=== PATIENT | male | born 1990 | race Caucasian/White ===

== ENCOUNTER 2017-12-23 06:20 | Inpatient (IN) ==
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
[2017-12-23 07:08] LABS: Bilirubin,Urine Negative (Negative); Blood,Urine Negative (Negative); Clarity,Urine Clear (Clear); Color,Urine Yellow (Yellow); Glucose,Urine (UA) Normal (Normal); Ketones,Urine Negative (Negative); Leukocyte Esterase,Urine Negative (Negative); Nitrite,Urine Negative (Negative); PH,Urine 6.5 pH Units (5.0-8.0); Protein,Urine Negative (Neg-Trace); Specific Gravity,Urine 1.018 (1.010-1.025); Urobilinogen,Urine Normal (Normal)
[2017-12-23 07:20] LABS: Basophils # 0.1 K/mcL (0.0-0.2); Basophils % 0.9 %; Eosinophils # 0.3 K/mcL (0.0-0.6); Eosinophils % 3.8 %; Hematocrit 42.9 % (37.5-50.1); Hemoglobin 14.7 g/dL (12.9-16.9); Immature Granulocytes % 0.2 % (0-4); Lymphocytes # 2.1 K/mcL (0.6-4.6); Lymphocytes % 32.2 %; Mean Corpuscular HGB Conc 34.3 g/dL (31.6-35.5); Mean Corpuscular Hemoglobin 30.2 pg (28.0-33.3); Mean Corpuscular Volume 88.3 fL (83.0-100.0); Mean Platelet Volume 11.1 fL (9.4-12.4); Monocytes # 0.6 K/mcL (0.0-1.3); Monocytes % 8.3 %; Neutrophils # 3.6 K/mcL (1.6-8.9); Platelet Count 162 K/mcL (140-400); Red Blood Count 4.86 M/mcL (4.19-5.50); Red Cell Distribution Width 13.3 % (11.5-14.5); Segmented Neutrophils % 54.6 %
[2017-12-23 07:30] LABS: Acetaminophen < 10 mcg/mL (10-20); Alanine Aminotransferase 11 Units/L (7-52); Albumin 4.3 g/dL (3.5-5.7); Albumin/Globulin Ratio 1.8 (1.1-2.2); Alkaline Phosphatase 51 Units/L (34-104); Aspartate Amino Transferase 16 Units/L (13-39); BUN/Creatinine Ratio 15 (6-26); Bilirubin,Direct 0.2 mg/dL (0.0-0.2); Bilirubin,Indirect 0.4 mg/dL (0.0-1.2); Bilirubin,Total 0.6 mg/dL (0.3-1.0); Blood Urea Nitrogen 11 mg/dL (6-20); Calcium 9.4 mg/dL (8.6-10.3); Carbon Dioxide 23 mEq/L (23-29); Chloride 108 mEq/L (98-107); Ethanol < 10 mg/dL (Less than 10); Globulin 2.4 g/dL (2.4-3.5); Glucose 106 mg/dL (70-105); Osmolality,Calculated 284 (280-300); Potassium 3.7 mEq/L (3.5-5.1); Salicylate < 2.5 mg/dL (15.0-30.0); Sodium 137 mEq/L (136-145); Total Protein 6.7 g/dL (6.4-8.9); eGFR For African Americans > 60 (> 60); eGFR For Non-African Americans > 60 (> 60)
[2017-12-23 07:37] LABS: Amphetamine Screen,Urine Negative ng/mL (Cutoff=1000); Barbiturate Screen,Urine Negative ng/mL (Cutoff=200); Benzodiazepines Screen,Urine Negative ng/mL (Cutoff=200); Cannabinoid Screen,Urine Negative ng/mL (Cutoff = 50); Cocaine Screen,Urine Negative ng/mL (Cutoff= 300); Opiate Screen,Urine Negative ng/mL (Cutoff=300); Phencyclidine Screen,Urine Negative ng/mL (Cutoff=25)
[2017-12-23 07:43] LABS: Thyroid Stimulating Hormone 18.976 mcIU/mL (0.340-5.600)
--- NOTE | 2017-12-23 07:55 | Emergency Department Note ---
Disposition Clinical Impression: Suicidal ideation Disposition: Still a Patient Referrals: NONE,PCP [Primary Care Provider] - Finn Alberto [Family Provider] - Forms: ED Satisfaction Letter General Adult HPI - General Chief complaint: ED Psychiatric Symptoms Stated complaint: psych Time Seen by Provider: 12/23/17 06:45 Source: EMS - History of Present Illness Pain Scale: 0 - Related Data Allergies Allergy/AdvReac Type Severity Reaction Status Date / Time ketorolac [From Toradol] AdvReac Rash Verified 12/23/17 07:11 Penicillins AdvReac Hives Verified 12/23/17 07:11 Past Medical History - Past Medical History Medical history: Reports: no medical history, thyroid disease Psychiatric history: Reports: prior suicide attempt, other - Social History Smoking Status: Current every day smoker Smokeless Tobacco Status: No Alcohol use: Reports: none Drug use: Reports: none Physical Exam - General General appearance: alert, in no apparent distress Course - Reevaluation(s) Reevaluation #1: Attestation note I examined this patient and my medical decision-making was reviewed with the emergency medicine resident. I agree with the documented findings, disposition and treatment plan as described except to the extent set forth below. Patient seen with physician occupational therapy assistant Bel Medina , Please see a copy of his note for details of the H&P, ED evaluation, management and disposition. I have independently evaluated the patient and confirmed appropriate portions of the history and physical exam. Briefly: Patient presents with mental health issues physical examination was benign patient is been medically cleared and awaiting evaluation by mental health services. Patient stable, disposition pending Time: 07:54 Vital Signs Temperature 97.2 F L 12/23/17 06:21 Pulse Rate 59 12/23/17 06:21 Respiratory Rate 20 12/23/17 06:21 Blood Pressure 114/69 12/23/17 06:21 O2 Sat by Pulse Oximetry 96 12/23/17 06:21 Temperature 97.2 F L 12/23/17 06:21 Pulse Rate 59 12/23/17 06:21 Respiratory Rate 20 12/23/17 06:21 Blood Pressure 114/69 12/23/17 06:21 O2 Sat by Pulse Oximetry 96 12/23/17 06:21 Oxygen Delivery Oxygen Delivery Room Air Medical Decision Making - Lab Data Result diagrams: 12/23/17 06:50 12/23/17 06:50 Lab Results 12/23/17 12/23/17 12/23/17 Range/Units 06:50 06:50 06:50 WBC 6.6 (4.3-11.1) K/mcL RBC 4.86 (4.19-5.50) M/mcL Hgb 14.7 (12.9-16.9) g/dL Hct 42.9 (37.5-50.1) % MCV 88.3 (83.0-100.0) fL MCH 30.2 (28.0-33.3) pg MCHC 34.3 (31.6-35.5) g/dL RDW 13.3 (11.5-14.5) % Plt Count 162 (140-400) K/mcL MPV 11.1 (9.4-12.4) fL Immature Gran % 0.2 (0-4) % Seg Neutrophils % 54.6 % Lymphocytes % 32.2 % Monocytes % 8.3 % Eosinophils % 3.8 % Basophils % 0.9 % Neutrophils # 3.6 (1.6-8.9) K/mcL Lymphocytes # 2.1 (0.6-4.6) K/mcL Monocytes # 0.6 (0.0-1.3) K/mcL Eosinophils # 0.3 (0.0-0.6) K/mcL Basophils # 0.1 (0.0-0.2) K/mcL Sodium (136-145) mEq/L Potassium (3.5-5.1) mEq/L Chloride (98-107) mEq/L Carbon Dioxide (23-29) mEq/L BUN (6-20) mg/dL Creatinine (0.70-1.30) mg/dL Est GFR ( Amer) (> 60) Est GFR (Non-Af Amer) (> 60) BUN/Creatinine Ratio (6-26) Glucose (70-105) mg/dL Calculated Osmolality (280-300) Calcium (8.6-10.3) mg/dL Total Bilirubin (0.3-1.0) mg/dL Direct Bilirubin (0.0-0.2) mg/dL Indirect Bilirubin (0.0-1.2) mg/dL AST (13-39) Units/L ALT (7-52) Units/L Alkaline Phosphatase (34-104) Units/L Serum Total Protein (6.4-8.9) g/dL Albumin (3.5-5.7) g/dL Globulin (2.4-3.5) g/dL Albumin/Globulin Ratio (1.1-2.2) TSH (0.340-5.600) mcIU/mL Urine Color Yellow (Yellow) Urine Clarity Clear (Clear) Urine pH 6.5 (5.0-8.0) pH Units Ur Specific [place] 1.018 (1.010-1.025) Urine Protein Negative (Neg-Trace) mg/dL Urine Glucose (UA) Normal (Normal) mg/dL Urine Ketones Negative (Negative) mg/dL Urine Blood Negative (Negative) Urine Nitrite Negative (Negative) Urine Bilirubin Negative (Negative) Urine Urobilinogen Normal (Normal) mg/dL Ur Leukocyte Esterase Negative (Negative) Salicylates (15.0-30.0) mg/dL Urine Opiates Screen Negative (Dkdrct=651) ng/mL Acetaminophen (10-20) mcg/mL Ur Barbiturates Screen Negative (Zanmvm=945) ng/mL Ur Phencyclidine Scrn Negative (Cutoff=25) ng/mL Ur Amphetamines Screen Negative (Hwxhid=9306) ng/mL U Benzodiazepines Scrn Negative (Nrvxzl=126) ng/mL Urine Cocaine Screen Negative (Cutoff= 300) ng/mL U Marijuana (THC) Screen Negative (Cutoff = 50) ng/mL Ethyl Alcohol (Less than 10) mg/dL 12/23/17 Range/Units 06:50 WBC (4.3-11.1) K/mcL RBC (4.19-5.50) M/mcL Hgb (12.9-16.9) g/dL Hct (37.5-50.1) % MCV (83.0-100.0) fL MCH (28.0-33.3) pg MCHC (31.6-35.5) g/dL RDW (11.5-14.5) % Plt Count (140-400) K/mcL MPV (9.4-12.4) fL Immature Gran % (0-4) % Seg Neutrophils % % Lymphocytes % % Monocytes % % Eosinophils % % Basophils % % Neutrophils # (1.6-8.9) K/mcL Lymphocytes # (0.6-4.6) K/mcL Monocytes # (0.0-1.3) K/mcL Eosinophils # (0.0-0.6) K/mcL Basophils # (0.0-0.2) K/mcL Sodium 137 (136-145) mEq/L Potassium 3.7 (3.5-5.1) mEq/L Chloride 108 H (98-107) mEq/L Carbon Dioxide 23 (23-29) mEq/L BUN 11 (6-20) mg/dL Creatinine 0.73 (0.70-1.30) mg/dL Est GFR ( Amer) > 60 (> 60) Est GFR (Non-Af Amer) > 60 (> 60) BUN/Creatinine Ratio 15 (6-26) Glucose 106 H (70-105) mg/dL Calculated Osmolality 284 (280-300) Calcium 9.4 (8.6-10.3) mg/dL Total Bilirubin 0.6 (0.3-1.0) mg/dL Direct Bilirubin 0.2 (0.0-0.2) mg/dL Indirect Bilirubin 0.4 (0.0-1.2) mg/dL AST 16 (13-39) Units/L ALT 11 (7-52) Units/L Alkaline Phosphatase 51 (34-104) Units/L Serum Total Protein 6.7 (6.4-8.9) g/dL Albumin 4.3 (3.5-5.7) g/dL Globulin 2.4 (2.4-3.5) g/dL Albumin/Globulin Ratio 1.8 (1.1-2.2) TSH 18.976 H (0.340-5.600) mcIU/mL Urine Color (Yellow) Urine Clarity (Clear) Urine pH (5.0-8.0) pH Units Ur Specific [place] (1.010-1.025) Urine Protein (Neg-Trace) mg/dL Urine Glucose (UA) (Normal) mg/dL Urine Ketones (Negative) mg/dL Urine Blood (Negative) Urine Nitrite (Negative) Urine Bilirubin (Negative) Urine Urobilinogen (Normal) mg/dL Ur Leukocyte Esterase (Negative) Salicylates < 2.5 L (15.0-30.0) mg/dL Urine Opiates Screen (Bbhxdk=193) ng/mL Acetaminophen < 10 L (10-20) mcg/mL Ur Barbiturates Screen (Qtlmdr=309) ng/mL Ur Phencyclidine Scrn (Cutoff=25) ng/mL Ur Amphetamines Screen (Ijxdvm=7651) ng/mL U Benzodiazepines Scrn (Jhdwsj=472) ng/mL Urine Cocaine Screen (Cutoff= 300) ng/mL U Marijuana (THC) Screen (Cutoff = 50) ng/mL Ethyl Alcohol < 10 (Less than 10) mg/dL
[2017-12-23] MEDS ORDERED: Ziprasidone injection 20 MG/ML VIAL IM ONE (11:22)
[2017-12-23] MEDS ORDERED: *HR* LORazepam 2 MG/ML VIAL IM PRN (12:27)
[2017-12-23] MEDS ORDERED: Haloperidol Lactate 5 MG/ML VIAL IM PRN (12:27)
[2017-12-23] MEDS ORDERED: hydrOXYzine pamoate 25 MG CAPSULE PO PRN (12:27)
[2017-12-23] MEDS ORDERED: MOM Conc 10 ML UD.LIQ PO PRN (12:27)
[2017-12-23] MEDS ORDERED: Mag Hydrox/Al Hydrox/Simeth 30 ML UDC PO PRN (12:27)
[2017-12-23] MEDS ORDERED: Ibuprofen 400 MG TABLET PO PRN (12:27)
[2017-12-23] MEDS ORDERED: *HR* LORazepam 1 MG TABLET PO PRN (12:27)
[2017-12-23] MEDS ORDERED: Nicotine 2 MG GUM BC PRN (12:39)
[2017-12-23] MEDS ORDERED: Levothyroxine 25 MCG TABLET PO STA (12:43)
[2017-12-23] MEDS ORDERED: *HR* LORazepam 1 MG TABLET PO SCH (15:00)
[2017-12-23] MEDS: traZODone 50 MG TABLET PO PRN (21:39)
[2017-12-23] MEDS: risperiDONE 1 MG TABLET PO SCH (23:58)
[2017-12-24] MEDS: Nicotine 2 MG GUM BC PRN (09:05)
--- NOTE | 2017-12-24 11:23 | Psychiatry History & Physical ---
Date of Encounter: 12/24/17 Time of Encounter: 11:00 History of Present Illness Patient Stated Chief Complaint: i am suicidal and homicidal. Medicare Admission Attestation: For traditional Medicare patients the provided hospital inpatient services are reasonable and necessary and in the case of services not specified as inpatient -only under 42 CFR 419.22 (n), that they are appropriately provided as inpatient services in accordance 42 CFR 412.3. For Critical Access Hospital the patient may reasonably be expected to be discharged or transferred to a hospital within 96 hours after admission to the Critical Access Hospital. Admitted From: Emergency Dept Plans for Post Hospital Care: Home History of Present Illness: Mr. Mensah is a 27 year old male evaluated today with h/o bipolar, borderline intellectual functioning and behavioral problems, lives with his family. He was admitted as came to ER walked himself as he was wanting to hurt himself buy choking himself and wanted to hurt people no one in particular, he states he saw blood on the wall of people he will kill, he does not have any weapons at home, he was d/c from residential in 08/19 since then has been inpatient 2-3 times , he has not been compliant with his medicine because they do not helped me, he takes effexor and thyroid medicine as they helps. he is hearing voices and telling to hurt people, he has h/o violence and agitation , states people still follow me and i do not like it , he remains irritable , psychotic and davies with suicidal and homicidal thoughts.sleep and appetite fair but has lost weight , he is 172 lbs now and i was 213lbs before. Past psych He has long h/o mental illness treatment since age 16, he has multiple inpatient admission , this year he has 4 admissions as per him , he was at [facility] in 2014 and 2008 , he has been in residential for 2 years and was given medicine in residential also. he has h/o cutting self and suicidal attempts in past. 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 medical he has hypothyroidism and asthma , no sz, no hiv no std. Family grandfather was dx bipolar and committed suicide . Past Med Surg Social Fam HX - Past Medical History Medical history: no medical history, asthma, thyroid disease - Past Psychiatric History Psychiatric history: Reports: bipolar, depression, prior suicide attempt, schizophrenia, previous psychiatric hospitalization Family psychiatric history: Yes Family History of Suicide: Completed (grand father completed suicide) - Social History Smoking Status: Current every day smoker Smokeless Tobacco Status: No Alcohol use: none Drug use: none Occupational status: unemployed Current living situation: Home, With Family Activity Level: Independent ambulation Recent Out of Country Travel Within the Last 8 Weeks: No Exposure or Possible Exposure to Illness During Travel: No Medications & Allergies Albuterol Sulfate [Albuterol Inhaler] 2 puff IH Q4-6H PRN 12/23/17 [History] Levothyroxine [Synthroid] [place] [address]/23/17 [History] Mirtazapine [Remeron] 30 mg PO HS 12/23/17 [History] Venlafaxine HCl [Venlafaxine HCl ER] 75 mg PO DAILY 12/23/17 [History] Ziprasidone HCl [Ziprasidone HCl] 20 mg PO BIDWM 12/23/17 [History] 3 Allergy/AdvReac Type Severity Reaction Status Date / Time ketorolac [From Toradol] AdvReac Rash Verified 12/23/17 07:11 Penicillins AdvReac Hives Verified 12/23/17 07:11 Review of Systems Constitutional: Denies: fever, chills, weakness, weight change Eyes: Denies: eye pain, vision change Ears, Nose, Throat: Denies: ear pain, throat pain, dental pain, hearing loss, congestion Cardiovascular: Denies: chest pain, palpitations, dyspnea on exertion Respiratory: Denies: cough, dyspnea, wheezes Gastrointestinal: Denies: abdominal pain, nausea, vomiting, diarrhea, constipation Genitourinary male: Denies: urgency, dysuria, frequency, genital lesions Musculoskeletal: Denies: joint swelling, joint pain Integumentary: Denies: rash, lesions, pruritus Neurological: Denies: headache, weakness, numbness, memory loss Psychiatric: Reports: anxiety, abnormal sleep pattern, suicidal ideation, homicidal ideation, auditory hallucinations, visual hallucinations, irritability , mood swings Endocrine: Denies: fatigue, heat or cold intolerance Hematologic/Lymphatic: Denies: easy bruising, lymphadenopathy Allergic/Immunologic: Denies: urticaria, itchy eyes Exam - HEENT Head exam IM: Present: atraumatic Eye exam IM: Present: EOMI, normal appearance, PERRL ENT exam IM: Present: normal exam - Neurological Neurological exam: Present: CN II-XII intact - Respiratory Respiratory exam IM: Present: CTAB - GI/Abdominal GI/Abdominal exam IM: Present: normal bowel sounds, soft. Absent: tenderness - Extremities Extremities exam IM: Present: full ROM - Skin Skin exam IM: Present: dry, warm - Constitutional Vitals: Temp Pulse Resp BP Pulse Ox 97.3 F L 62 16 108/67 96 12/24/17 08:45 12/24/17 08:45 12/24/17 08:45 12/24/17 08:45 12/23/17 10:26 General appearance: disheveled, malodorous, thin - Musculoskeletal Gait: normal Station: other Strength & Tone: normal for patient - Psychiatric Patient Orientation: Yes Person, Yes Time, Yes Place Level of alertness: Alert Behavior: restless, guarded Psychomotor activity: Increased Eye Contact: Minimal Contact Mood Description: Anxious, Irritable Affect description: labile Speech Volume: Loud Speech pattern: excessive Thought Process: Circumstantial Thought Content: Yes Suicidal ideation, Yes Homicidal ideation, Yes Preoccupation, Yes Paranoid delusion Perceptual Disturbances: Yes Auditory hallucinations, Yes Visual hallucinations Attention Span Ability: Unable to Sustain Attention Memory Description: Grossly Intact Patient Reliability: Reliable Historian Intelligence Estimate: Below Average Judgment: Poor Insight: Minimal Results - Labs Labs: Laboratory Last Values WBC 6.6 K/mcL (4.3-11.1) 12/23/17 06:50 RBC 4.86 M/mcL (4.19-5.50) 12/23/17 06:50 Hgb 14.7 g/dL (12.9-16.9) 12/23/17 06:50 Hct 42.9 % (37.5-50.1) 12/23/17 06:50 MCV 88.3 fL (83.0-100.0) 12/23/17 06:50 MCH 30.2 pg (28.0-33.3) 12/23/17 06:50 MCHC 34.3 g/dL (31.6-35.5) 12/23/17 06:50 RDW 13.3 % (11.5-14.5) 12/23/17 06:50 Plt Count 162 K/mcL (140-400) 12/23/17 06:50 MPV 11.1 fL (9.4-12.4) 12/23/17 06:50 Immature Gran % 0.2 % (0-4) 12/23/17 06:50 Seg Neutrophils % 54.6 % 12/23/17 06:50 Lymphocytes % 32.2 % 12/23/17 06:50 Monocytes % 8.3 % 12/23/17 06:50 Eosinophils % 3.8 % 12/23/17 06:50 Basophils % 0.9 % 12/23/17 06:50 Neutrophils # 3.6 K/mcL (1.6-8.9) 12/23/17 06:50 Lymphocytes # 2.1 K/mcL (0.6-4.6) 12/23/17 06:50 Monocytes # 0.6 K/mcL (0.0-1.3) 12/23/17 06:50 Eosinophils # 0.3 K/mcL (0.0-0.6) 12/23/17 06:50 Basophils # 0.1 K/mcL (0.0-0.2) 12/23/17 06:50 Sodium 137 mEq/L (136-145) 12/23/17 06:50 Potassium 3.7 mEq/L (3.5-5.1) 12/23/17 06:50 Chloride 108 mEq/L (98-107) H 12/23/17 06:50 Carbon Dioxide 23 mEq/L (23-29) 12/23/17 06:50 BUN 11 mg/dL (6-20) 12/23/17 06:50 Creatinine 0.73 mg/dL (0.70-1.30) 12/23/17 06:50 Est GFR ( Amer) > 60 (> 60) 12/23/17 06:50 Est GFR (Non-Af Amer) > 60 (> 60) 12/23/17 06:50 BUN/Creatinine Ratio 15 (6-26) 12/23/17 06:50 Glucose 106 mg/dL (70-105) H 12/23/17 06:50 Calculated Osmolality 284 (280-300) 12/23/17 06:50 Calcium 9.4 mg/dL (8.6-10.3) 12/23/17 06:50 Total Bilirubin 0.6 mg/dL (0.3-1.0) 12/23/17 06:50 Direct Bilirubin 0.2 mg/dL (0.0-0.2) 12/23/17 06:50 Indirect Bilirubin 0.4 mg/dL (0.0-1.2) 12/23/17 06:50 AST 16 Units/L (13-39) 12/23/17 06:50 ALT 11 Units/L (7-52) 12/23/17 06:50 Alkaline Phosphatase 51 Units/L (34-104) 12/23/17 06:50 Serum Total Protein 6.7 g/dL (6.4-8.9) 12/23/17 06:50 Albumin 4.3 g/dL (3.5-5.7) 12/23/17 06:50 Globulin 2.4 g/dL (2.4-3.5) 12/23/17 06:50 Albumin/Globulin Ratio 1.8 (1.1-2.2) 12/23/17 06:50 TSH 18.976 mcIU/mL (0.340-5.600) H 12/23/17 06:50 Free T4 0.79 ng/dl (0.70-2.00) 12/23/17 06:50 Urine Color Yellow (Yellow) 12/23/17 06:50 Urine Clarity Clear (Clear) 12/23/17 06:50 Urine pH 6.5 pH Units (5.0-8.0) 12/23/17 06:50 Ur Specific Dagmar 1.018 (1.010-1.025) 12/23/17 06:50 Urine Protein Negative mg/dL (Neg-Trace) 12/23/17 06:50 Urine Glucose (UA) Normal mg/dL (Normal) 12/23/17 06:50 Urine Ketones Negative mg/dL (Negative) 12/23/17 06:50 Urine Blood Negative (Negative) 12/23/17 06:50 Urine Nitrite Negative (Negative) 12/23/17 06:50 Urine Bilirubin Negative (Negative) 12/23/17 06:50 Urine Urobilinogen Normal mg/dL (Normal) 12/23/17 06:50 Ur Leukocyte Esterase Negative (Negative) 12/23/17 06:50 Salicylates < 2.5 mg/dL (15.0-30.0) L 12/23/17 06:50 Urine Opiates Screen Negative ng/mL (Whvpcg=362) 12/23/17 06:50 Acetaminophen < 10 mcg/mL (10-20) L 12/23/17 06:50 Ur Barbiturates Screen Negative ng/mL (Onyezc=647) 12/23/17 06:50 Ur Phencyclidine Scrn Negative ng/mL (Cutoff=25) 12/23/17 06:50 Ur Amphetamines Screen Negative ng/mL (Rdwtlr=3584) 12/23/17 06:50 U Benzodiazepines Scrn Negative ng/mL (Nzkjmy=518) 12/23/17 06:50 Urine Cocaine Screen Negative ng/mL (Cutoff= 300) 12/23/17 06:50 U Marijuana (THC) Screen Negative ng/mL (Cutoff = 50) 12/23/17 06:50 Ethyl Alcohol < 10 mg/dL (Less than 10) 12/23/17 06:50 Assessment and Plan (1) Homicidal ideation Current visit: Yes Status: Acute Plan: Admit inpatient for safety and stabilization, Close observation, Suicide Precautions per unit protocol, Encourage participation in unit milieu, Group Therapy, Monitor sleep, Monitor appetite, Family/Supportive other meeting, Other Additional Plan: inpatient admission for safety and close monitoring and starting medications. Risks, benefits, side effects, alternatives discussed w/pt: Yes Patient agreeable to treatment: Yes Plans for Post Hospital Care: at Home Estimated Length of Stay (Days): 5 (2) Suicidal ideation Current visit: Yes Status: Acute Plan: Admit inpatient for safety and stabilization, Close observation, Suicide Precautions per unit protocol, Encourage participation in unit milieu, Group Therapy, Monitor sleep, Monitor appetite, Secure weapons, Family/Supportive other meeting Additional Plan: close monitoring , no sheets in room as plan to chock self . Risks, benefits, side effects, alternatives discussed w/pt: Yes Patient agreeable to treatment: Yes Plans for Post Hospital Care: at Home (3) Bipolar affective disorder, depressed, severe, with psychotic behavior Current visit: Yes Status: Acute Plan: Admit inpatient for safety and stabilization, Close observation, Suicide Precautions per unit protocol, Encourage participation in unit milieu, Group Therapy, Monitor sleep, Monitor appetite, Family/Supportive other meeting Additional Plan: patient will be started on medications and continus stabilization for safety Risks, benefits, side effects, alternatives discussed w/pt: Yes Patient agreeable to treatment: Yes Plans for Post Hospital Care: at Home Estimated Length of Stay (Days): 5
[2017-12-24] MEDS: Venlafaxine XR (24 HR) 75 MG CAP.ER.24H PO SCH (13:05)
[2017-12-24] MEDS: Lurasidone 20 MG TABLET PO SCH (13:05)
[2017-12-24] MEDS: risperiDONE 1 MG TABLET PO SCH (13:12)
[2017-12-25] MEDS: Nicotine 2 MG GUM BC PRN (06:20)
[2017-12-25] MEDS: Lurasidone 20 MG TABLET PO SCH ×2 (09:43→09:53)
[2017-12-25] MEDS: Venlafaxine XR (24 HR) 75 MG CAP.ER.24H PO SCH ×2 (09:43→09:53)
--- NOTE | 2017-12-25 12:43 | Psychiatry Progress Note ---
Date of Encounter: 12/25/17 Time of Encounter: 12:00 Subjective Interval history: Patient seen today , case d/w treatment team as per staff patient is having bizarre behavior . Today in session states can i go today , i will find job and i will go to [facility], i am ok now. smiling inappropiately , he is looking behind as if responding to some thing, my mood is very good and my apatite is good i can go. he is denying alls/s as he wants to leave today , he has no place to go to and has no insight and poor judgement. at present patient remains internally preoccupied and will increase dose of latuda. he got upset and irritable when he was told will not be discharged today . continue close observation. Review of Systems Psychiatric: Reports: anxiety, abnormal sleep pattern, suicidal ideation, homicidal ideation, auditory hallucinations, visual hallucinations, irritability , mood swings Results - Vital Signs Vital Signs: Temp Pulse Resp BP Pulse Ox 98.8 F 66 16 119/73 96 12/25/17 09:00 12/25/17 09:00 12/25/17 09:00 12/25/17 09:00 12/23/17 10:26 Assessment and Plan (1) Homicidal ideation Current visit: Yes Status: Acute Risks, benefits, side effects, alternatives discussed w/pt: Yes Patient agreeable to treatment: Yes (2) Suicidal ideation Current visit: Yes Status: Acute Risks, benefits, side effects, alternatives discussed w/pt: Yes Patient agreeable to treatment: Yes (3) Bipolar affective disorder, depressed, severe, with psychotic behavior Current visit: Yes Status: Acute Risks, benefits, side effects, alternatives discussed w/pt: Yes Patient agreeable to treatment: Yes Consult Discharge Plan - Plan Referrals: Kathy Pratt [facility] [place] [Outside] - 12/28/17 9:30 am (The above appointment is with Ele for psychiatry and medications. You will also see Rachel on 12/28/17 at 0930 for outpatient mental health counselling. Please bring photo ID and insurance card to appointments.) Psychiatry Exam - Constitutional Vitals: Temp Pulse Resp BP Pulse Ox 98.8 F 66 16 119/73 96 12/25/17 09:00 12/25/17 09:00 12/25/17 09:00 12/25/17 09:00 12/23/17 10:26 General appearance: thin - Musculoskeletal Gait: normal Station: bizarre mannerisms Strength & Tone: normal for patient - Psychiatric Patient Orientation: Yes Person, Yes Time, Yes Place Level of alertness: Alert Behavior: guarded, distractible Psychomotor activity: Normal Eye Contact: Maintains Eye Contact Mood Description: Anxious Affect description: constricted Speech Volume: Normal Speech pattern: rambling, excessive Language & Vocabulary: consistent with education, limited Thought Process: Tangential, Racing Thought Content: Yes Preoccupation, Yes Paranoid delusion Perceptual Disturbances: Yes Reacting to internal stimuli Attention Span Ability: Unable to Sustain Attention Memory Description: Grossly Intact Patient Reliability: Questionable Historian Fund of knowledge: Yes average Intelligence Estimate: Average Judgment: Poor Insight: None
[2017-12-26] MEDS: Nicotine 2 MG GUM BC PRN ×2 (07:06→21:26)
[2017-12-26] MEDS: Venlafaxine XR (24 HR) 75 MG CAP.ER.24H PO SCH (08:23)
[2017-12-26] MEDS: Lurasidone 20 MG TABLET PO SCH (08:23)
--- NOTE | 2017-12-26 11:14 | Psychiatry Progress Note ---
Date of Encounter: 12/26/17 Time of Encounter: 10:30 Subjective Interval history: Patient seen today , case d/w treatment plan , he has been refusing Latuda but is taking effexor, has been agitated and irritable at times and using profanity . He stated to me nothing is wrong with me , i talked to security and he said go with flow, i do not need you guys to help me, i do not want any medications and i do not need it because there is nothing wrong with me and i do not want to flip out , if i do it will be bad , had become irritable, he has no place to go and has no insight and is fluctuating in his moods, irritable and agitated and denies suicidal ideation/no homicidal ideation. he threathened to flip out and it will be bad "you will see " he has had suicidal attempts in past and has h/o non compliance . He is at present irritable , davies and agitated , I need to get out of here, why you are throwing this on my face, he got irritable patient refusing to sign voluntarily and will send request to probated for safety and treatment. he is also homeless and poor insight and judgement. Review of Systems Psychiatric: Reports: anxiety, abnormal sleep pattern, suicidal ideation, homicidal ideation, auditory hallucinations, visual hallucinations, irritability , mood swings Results - Vital Signs Vital Signs: Temp Pulse Resp BP Pulse Ox 98.4 F 68 16 119/71 96 12/26/17 09:00 12/26/17 09:00 12/26/17 09:00 12/26/17 09:00 12/23/17 10:26 Assessment and Plan (1) Homicidal ideation Current visit: Yes Status: Acute Risks, benefits, side effects, alternatives discussed w/pt: Yes Patient agreeable to treatment: Yes (2) Suicidal ideation Current visit: Yes Status: Acute Risks, benefits, side effects, alternatives discussed w/pt: Yes Patient agreeable to treatment: Yes (3) Bipolar affective disorder, depressed, severe, with psychotic behavior Current visit: Yes Status: Acute Risks, benefits, side effects, alternatives discussed w/pt: Yes Patient agreeable to treatment: Yes Consult Discharge Plan - Plan Referrals: Kathy Pratt [facility] [place] [Outside] - 01/10/18 8:00 am (The above appointment is with Ele for psychiatry and medications. You will also see Rachel on *12/28/17 at 0930 *for outpatient mental health counselling. Please bring photo ID and insurance card to appointments. *Rachel will pick you up for your appointment.) Psychiatry Exam - Constitutional Vitals: Temp Pulse Resp BP Pulse Ox 98.4 F 68 16 119/71 96 12/26/17 09:00 12/26/17 09:00 12/26/17 09:00 12/26/17 09:00 12/23/17 10:26 General appearance: average - Musculoskeletal Gait: other Station: other Strength & Tone: normal for patient - Psychiatric Patient Orientation: Yes Person, Yes Time, Yes Place Level of alertness: Alert Behavior: hostile, uncooperative, impulsive Psychomotor activity: Increased Eye Contact: Minimal Contact Mood Description: Angry, Irritable Affect description: congruent with mood Speech Volume: Excessive Variation Language & Vocabulary: consistent with education Thought Content: Yes Preoccupation, Yes Paranoid delusion Attention Span Ability: Unable to Sustain Attention Patient Reliability: Questionable Historian Fund of knowledge: Yes below average Intelligence Estimate: Below Average Judgment: Poor Insight: None
[2017-12-26] MEDS ORDERED: Ziprasidone 20 MG CAPSULE PO PRN (11:22)
[2017-12-26] MEDS ORDERED: Ziprasidone injection 20 MG/ML VIAL IM PRN (11:22)
[2017-12-26] MEDS: traZODone 50 MG TABLET PO PRN (21:26)
[2017-12-27] MEDS: Lurasidone 20 MG TABLET PO SCH (07:55)
[2017-12-27] MEDS: Venlafaxine XR (24 HR) 75 MG CAP.ER.24H PO SCH (07:55)
--- NOTE | 2017-12-27 11:26 | Psychiatry Progress Note ---
Date of Encounter: 12/27/17 Time of Encounter: 11:05 Subjective Interval history: Patient seen today case d/w treatment team . patient is more calm today I am sorry i did not mean to flip out at you yesterday , states he talked to sap security architect and felt better, he took medications last night , still fixated on discharge , states nothing wrong with him , denies any psychiaric s/s at present , is isolative and in his room , has been eating well and sleep is getting better. poor insight and judgement, continue observation , encouraged to take his medications. Review of Systems Psychiatric: Reports: anxiety, abnormal sleep pattern, suicidal ideation, homicidal ideation, auditory hallucinations, visual hallucinations, irritability , mood swings Results - Vital Signs Vital Signs: Temp Pulse Resp BP Pulse Ox 98.6 F 60 16 98/57 96 12/27/17 09:26 12/27/17 09:26 12/27/17 09:26 12/27/17 09:26 12/23/17 10:26 Assessment and Plan (1) Homicidal ideation Current visit: Yes Status: Acute Risks, benefits, side effects, alternatives discussed w/pt: Yes Patient agreeable to treatment: Yes (2) Suicidal ideation Current visit: Yes Status: Acute Risks, benefits, side effects, alternatives discussed w/pt: Yes Patient agreeable to treatment: Yes (3) Bipolar affective disorder, depressed, severe, with psychotic behavior Current visit: Yes Status: Acute Risks, benefits, side effects, alternatives discussed w/pt: Yes Patient agreeable to treatment: Yes Consult Discharge Plan - Plan Referrals: Kathy [facility] [place] [Outside] - 01/10/18 8:00 am (The above appointment is with Ele for psychiatry and medications. You will also see Rachel on *01/04/18 at 1:00pm *for outpatient mental health counselling. Please bring photo ID and insurance card to appointments. *Rachel will pick you up for your appointment.) Psychiatry Exam - Constitutional Vitals: Temp Pulse Resp BP Pulse Ox 98.6 F 60 16 98/57 96 12/27/17 09:26 12/27/17 09:26 12/27/17 09:26 12/27/17 09:26 12/23/17 10:26 General appearance: unkempt, thin - Musculoskeletal Gait: normal Station: other Strength & Tone: normal for patient - Psychiatric Patient Orientation: Yes Person, Yes Time, Yes Place Level of alertness: Alert Behavior: calm, cooperative Psychomotor activity: Normal Eye Contact: Maintains Eye Contact Mood Description: Euthymic/stable Affect description: blunted Speech Volume: Normal Speech pattern: normal rate, normal rhythm, normal tone Language & Vocabulary: consistent with education Thought Content: Yes Preoccupation Attention Span Ability: Unable to Sustain Attention Memory Description: Grossly Intact Patient Reliability: Questionable Historian Fund of knowledge: Yes below average Intelligence Estimate: Below Average Judgment: Limited Insight: Minimal
[2017-12-27] MEDS: Nicotine 2 MG GUM BC PRN (15:53)
[2017-12-27] MEDS: traZODone 50 MG TABLET PO PRN (21:29)
[2017-12-28] MEDS: Venlafaxine XR (24 HR) 75 MG CAP.ER.24H PO SCH (08:33)
[2017-12-28] MEDS: Lurasidone 20 MG TABLET PO SCH (08:34)
[2017-12-28] MEDS: Nicotine 2 MG GUM BC PRN (09:22)
[2017-12-28 09:55] VITALS: BP 111/67
--- NOTE | 2017-12-28 12:16 | Discharge Summary ---
Date of Encounter: 12/28/17 Time of Encounter: 12:12 Diagnosis - Discharge Diagnosis (1) Bipolar affective disorder, depressed, severe, with psychotic behavior Status: Acute Medications - Discharge Medications Prescriptions: Lurasidone [Latuda] 40 mg PO DAILY #28 tablet Venlafaxine XR (24 HR) [Effexor XR] 75 mg PO DAILY #14 cap.er.24h Albuterol Sulfate [Albuterol Inhaler] 2 puff IH Q4-6H PRN 12/23/17 [History] Mirtazapine [Remeron] 30 mg PO HS 12/23/17 [History] DiphenhydraMINE [Benadryl] 50 mg PO BID capsule 12/28/17 [Rx] Levothyroxine [Synthroid] 50 mcg PO 0630 tablet 12/28/17 [Rx] Lurasidone [Latuda] 40 mg PO DAILY #28 tablet 12/28/17 [Rx] Venlafaxine XR (24 HR) [Effexor XR] 75 mg PO DAILY #14 cap.er.24h 12/28/17 [Rx] 3 Allergy/AdvReac Type Severity Reaction Status Date / Time ketorolac [From Toradol] AdvReac Rash Verified 12/23/17 07:11 Penicillins AdvReac Hives Verified 12/23/17 07:11 Provider Date of admission: 12/23/17 11:39 Primary care physician: PCP NONE Discharging clinician: Khushi Dexter Psychiatry Exam - Constitutional Vitals: Temp Pulse Resp BP Pulse Ox 98.6 F 65 14 111/67 96 12/28/17 09:00 12/28/17 09:00 12/28/17 09:00 12/28/17 09:00 12/23/17 10:26 General appearance: age & developmentally appropriate, well-groomed, well- nourished - Musculoskeletal Gait: normal Station: relaxed Strength & Tone: normal for patient - Psychiatric Patient Orientation: Yes Person, Yes Time, Yes Place Level of alertness: Alert Behavior: calm, cooperative Psychomotor activity: Increased Eye Contact: Maintains Eye Contact Mood Description: Euthymic/stable Affect description: congruent with mood, full range Speech Volume: Normal Speech pattern: normal rate, normal rhythm, normal tone, fluent, spontaneous Language & Vocabulary: consistent with education Thought Process: Linear, Goal Oriented Thought Content: No Suicidal ideation, No Homicidal ideation, No Overt delusions Perceptual Disturbances: No Reacting to internal stimuli, No Auditory hallucinations, No Visual hallucinations Attention Span Ability: Capable of Focused Attention Memory Description: Grossly Intact Fund of knowledge: Yes below average Intelligence Estimate: Below Average Judgment: Limited Insight: Partial Hospital Course Hospital course: Mr. Mensah is a 27 year old male who was admitted secondary to SI and vague HI. Started on Effexor and Latuda with good results. No longer feeling like he is a threat to self or others. States he came to the hospital because he was "aggravated with everybody" and "I needed to give my mind a break." Now feels stable. Denying SI/HI ideation, plan, or intent. Has been redirectable in the hospital. Out and about on the unit. Tox screen clean at time of admission. Pleasant when talking to this functional tester typewriters. No evidence of psychosis or major mood disturbance. Seems lower functioning. Staff spoke with girlfriend and she is comfortable having client come and live with her. - Time Spent with Patient Total time spent providing and/or coordinating discharge services: Assessment and Plan - Patient/Caregiver Discharge Instructions Activity: resume usual activities as tolerated Diet: regular diet - Follow up Plan Follow up with: Kathy Pratt [facility] [place] [Outside] - 01/04/18 1:00 pm (The above appointment is Rachel for outpatient mental health counseling services*. You will also see Ele Culp for outpatient psychiatric assessment and medication management services on 01/10/2018 at 8:00am. Please bring photo ID and insurance card to all appointments. *Rachel will pick you up for your appointment.) Functional capacity at discharge: independent ambulation Overall status at discharge: Stable Disposition: Home, Self-Care Quality - Multiple Antipsychotics Patient discharged on 2 or more antipsychotic medications: No Procedures - Procedures Procedures: Medication Management, Crisis Stabilization, Supportive Therapy, Group Therapy
== END 2017-12-28 14:35 | disposition home or self-care (01) | DRG 753 ==
LOC: EMEROO 06:20 → 1ANU 11:39
PROVIDERS: ADMIT Psychiatry & Neurology Psychiatry; ATTEND Psychiatry & Neurology Psychiatry

== ENCOUNTER 2020-03-17 18:56 | Observation (INO) ==
[2020-03-17] MEDS ORDERED: *HR* LORazepam 1 MG TABLET PO ONE (21:30)
[2020-03-17] MEDS ORDERED: haloperidoL 5 MG TABLET PO ONE (21:31)
[2020-03-17] MEDS ORDERED: traZODone 50 MG TABLET PO PRN (22:15)
[2020-03-17] MEDS ORDERED: Acetaminophen 325 MG TABLET PO PRN (22:15)
[2020-03-17] MEDS ORDERED: hydrOXYzine pamoate 25 MG CAPSULE PO PRN (22:15)
[2020-03-17] MEDS ORDERED: *HR* LORazepam 1 MG TABLET PO PRN (22:15)
[2020-03-17] MEDS ORDERED: MOM Conc 10 ML UD.LIQ PO PRN (22:15)
[2020-03-17] MEDS ORDERED: *HR* LORazepam 2 MG/ML VIAL IM PRN (22:15)
[2020-03-17] MEDS: Lurasidone 20 MG TABLET PO SCH (23:15)
[2020-03-17] MEDS ORDERED: Nicotine 2 MG GUM BC PRN (23:26)
[2020-03-18] MEDS: Lurasidone 20 MG TABLET PO SCH (11:59)
[2020-03-18 12:55] VITALS: BP 146/78
[2020-03-19] MEDS ORDERED: Lurasidone 20 MG TABLET PO SCH (09:00)
[2020-03-19] MEDS ORDERED: Venlafaxine XR (24 HR) 75 MG CAP.ER.24H PO SCH (09:00)
== END 2020-03-18 14:40 | disposition home or self-care (01) ==
LOC: EMEROOARM 18:56 → 1ANU 22:10 → INTOOBSV 22:10 → 1ANU 23:00
PROVIDERS: ADMIT Psychiatry & Neurology Forensic Psychiatry; ATTEND Psychiatry & Neurology Forensic Psychiatry